=== PATIENT | male | born 1955 | race Caucasian/White ===

== ENCOUNTER 2019-08-25 06:22 | Observation (INO) | payer OTHER ==
[~2019-08-25] VITALS: Ht 180.3 cm; Wt 105.3 kg
[~2019-08-25 06:22] MED LIST: ANTARA130 MG; ASPIRIN325; BYSTOLIC 5 MG5 M1; FISH OIL 1,0001 EAC8; GLUCOPHAGE500 MG; HYDROCHLOROTH12.5 MG; LIPITOR80 MG; ZETIA10 MG
[2019-08-25 06:50] VITALS: BP 188/82
[2019-08-25] MEDS ORDERED: CRESTOR20 MG PO (06:59)
[2019-08-25 07:12] LABS: HEMATOCRIT 46.2 % (42.0-52.0); HEMOGLOBIN 15.1 gm/dL (14.0-18.0); MCH 29.7 pg (26.0-34.0); MCHC 32.7 g/dL (28.0-37.0); MCV 90.8 fL (80.0-100.0); RBC 5.09 mil/uL (4.50-6.00); RDW 13.2 % (10.5-14.5); WBC 7.9 thou/uL (4.0-11.0)
[2019-08-25 07:22] LABS: CALCIUM 9.2 mg/dL (8.5-10.1); CREATININE 0.9 mg/dL (0.7-1.3)
--- NOTE | 2019-08-25 11:06 | NUR ---
PT ORIENTED TO ROOM AND UNIT, BED LOW AND LOCKED, SIDE RAILS UPX3, CALL LIGHT IN REACH. WILL CONTINUE TO ASSESS.
[2019-08-25] MEDS ORDERED: METOPROLOL SUCC25 M1 PO (11:42)
[2019-08-25] MEDS ORDERED: EFFIENT10 MG PO (11:42)
[2019-08-25] MEDS ORDERED: BENICAR40 MG PO (11:42)
[2019-08-25 12:00] VITALS: BP 100/37
--- NOTE | 2019-08-25 12:53 | EKG ---
[address] [address] ELECTROCARDIOGRAM REPORT Name: DANIEL SANTIAGO Room #: 212-P [facility]..#: [id number] Admission: 08/25/19 Attend Phys: Dequan Matthews MD, Discharge: Date of : 53 Report #: [id number] THIS REPORT FOR: //name// [facility] Test Date: 2019-08-25 Test Time: 07:18:52 Pat Name: DANIEL SANTIAGO Department: Room: [facility] Gender: M Education Reviewer: Jose MARTINES : 1955 Requested By: Dequan Matthews Order Number: [id number] MD: Roosevelt Ortega Measurements Intervals [place] Rate: 64 P: 43 WI: 201 QRS: -17 QRSD: 102 T: 6 QT: 416 QTc: 430 Interpretive Statements Sinus rhythm Inferior infarct, old Compared to ECG 10/20/2002 18:33:50 First degree AV block no longer present Poor R-wave progression no longer present Myocardial infarct finding still present Electronically Signed On 08-25-2019 12:53:44 CDT by Roosevelt Ortega [email or web address] <ELECTRONICALLY SIGNED> By: Roosevelt Ortega MD 08/25/19 1253 7 7 Roosevelt Ortega MD /EPI
--- NOTE | 2019-08-25 12:58 | CATHLAB ---
[facility] [address] [place] [address] INVASIVE PROCEDURE REPORT Name: DANIEL SANTIAGO Room #: 212-P [facility] [place] .#: [id number] Admission: 08/25/19 Attend Phys: Dequan Matthews, Discharge: Date of : 53 Report #: [id number] THIS REPORT FOR: //name// APPROVED REPORT Study performed: 08/25/2019 07:43:24 Patient Details Patient Status: Out-Patient Room #: The patient is a 64 year-old male Event Personnel Dequan Matthews Buckle Strap Drum Operator, Ashli Shipman RN RN, Ruben Case RTR Mario Brown David Monitor, Audrey Arriola affiliate marketing coordinator Performed Left Heart Cath w/or w/o Coronaries [id number] [facility] Aortogram Abdominal Peripheral Angio 687566 [address] w/wo Plasty Single LAD 257342 Indication Chest pain Procedure Narrative The Right Groin^ was infiltrated with 1% Lidocaine subcutaneous anesthesia. A PINNACLE 6FR Sheath #[id number] sheath was inserted into the RFA^. Coronary angiography was performed using coronary diagnostic catheters. The right coronary system was accessed and visualized with a JR4 catheter. The left coronary system was accessed and visualized with a JL4 catheter. The left ventricle was accessed and visualized with a PIGTAIL catheter. Left ventricular/Aortic Valve gradient assessed via catheter pullback. Left ventriculogram was performed in 30 degree projection. An aortogram of the abdominal aorta was performed. Closure device was deployed with a 6 Fr MYNXGRIP 6/7F #[id number]. The patient tolerated the procedure well and there were no complications associated with the procedure. There was no hematoma. Intraoperative Conscious Sedation Sedation start time: 8.23 Case end Time: 9.20 Fentanyl 100 mcg Versed 2 mg Fluoro Time: 10.23 minutes [facility] [place] [address] INVASIVE PROCEDURE REPORT Name: JACKDANIEL Jitendra Room #: 212-P [facility] [place] ..#: [id number] Admission: 08/25/19 Attend Phys: Dequan Matthews, Discharge: Date of : 53 Report #: [id number] Dose: DAP 21273.00 cGycm2 1930 mGy Contrast Type and Amount: Omnipaque 210 ml Hemodynamics The aortic pressure is 173/67 mmHg with a mean of 94 mmHg. The left ventricular pressure is 166/11 mmHg with a mean of mmHg. The left ventricular end diastolic pressure is 14 mmHg. There was no gradient across the aortic valve upon pullback. Pullback from the left ventricle to the aorta revealed no gradient across the aortic valve. PCI Technique Lesion Percutaneous coronary intervention was performed on the mid left anterior descending artery segment. A LAUNCHER 6FR EBU 4.5 #[id number] Guide Catheter was used to engage the ostium. A Luge Wire .014 x 182CM #[id number] Interventional Guidewire was used to cross the lesion. BALLOON DILATION A Balloon catheter Sprinter OTW 2.75 x 20 #[id number] was inserted and inflated up to 12.00atm for 19seconds. Additional Inflation: 12.00atm for 13seconds. STENT DEPLOYMENT A drug-eluting stent RESOLUTE SARAH OTW 2.75 X 18 #[id number] was inserted and inflated up to 15.00atm for 34seconds. Additional Inflation: 15.00atm for 23seconds. Conclusion #1 successful PTCA stent of a mid LAD tandem 80-90% lesions placement of a 2.75 x 18 Sarah resolute stent postdilated 3.0 mm VITA grade 3 flow. Proximal LAD has 50% narrowing we will follow moderate heavy proximal calcification also noted. #2 left main large giving rise to LAD and circumflex #3 circumflex OM nondominant with mild disease there is brisk filling of the PDA TIMMY off of the dominant right that is occluded from the left system. #4 dominant right is proximally occluded was prior infarct vessel #5 normal left jugular size with inferior basilar hypokinesis EF 50% range #6 abdominal aortogram revealing mild tortuosity but no aneurysm renal arteries and iliac system appear widely patent Recreations and plan: Continue aggressive risk factor modification. Dual antiplatelet therapy times one year with proximal LAD stent. Will follow or proximal LAD lesion not intervened on. [facility] [address] [place] [address] INVASIVE PROCEDURE REPORT Name: JACKDANIEL A Room #: 212-P [facility] [place] M.R.#: [id number] Admission: 08/25/19 Attend Phys: Dequan Matthews, Discharge: Date of : 53 Report #: [id number] infarct previously noted. PDA TIMMY well collateralized. Transfer to U stable condition follow post stent protocol. <ELECTRONICALLY SIGNED> By: Dequan Matthews MD, FACC 08/25/19 1258 1258 Dequan Matthews MD, FACC /INF
--- NOTE | 2019-08-25 17:05 | NUR ---
PT TOLERATED LAYING FLAT FOR 3 HOURS WELL. PT UP TO BATHROOM ROOM. RIGHT GROIN REMAINS CDI. HOME BP MEDS SCHEDULED TO RESTART IN THE AM. WILL CONTINUE TO ASSESS.
--- NOTE | 2019-08-25 19:28 | NUR ---
GAVE AM BP MEDS TONIGHT SBP IS 175. PASSED THIS ONTO ANDREW RN AT BEDSIDE.
[2019-08-25 19:56] VITALS: BP 153/80
[2019-08-25 21:24] VITALS: BP 148/89
[2019-08-25 23:37] VITALS: BP 140/85
--- NOTE | 2019-08-26 03:53 | NUR ---
PT S/P CARDIAC CATH. ALERT AND ORIENTED. ELEVATED BP, CURRENTLY CONTROLLED. DENIES PAIN, GROIN SITE C/D/I. PT APPEAR STABLE . DENIES N/V/D. OTHER ASSESSMENTS DOCUMENTED. WILL CONTINUE TO FOLLOW POC.
[2019-08-26 04:30] VITALS: BP 153/79
[2019-08-26 05:58] LABS: HEMATOCRIT 44.2 % (42.0-52.0); HEMOGLOBIN 14.6 gm/dL (14.0-18.0); MCHC 33.1 g/dL (28.0-37.0); MCV 90.6 fL (80.0-100.0); RBC 4.88 mil/uL (4.50-6.00); RDW 12.8 % (10.5-14.5); WBC 7.8 thou/uL (4.0-11.0)
[2019-08-26 06:11] LABS: ALBUMIN 3.4 g/dL (3.4-5.0); CALCIUM 8.6 mg/dL (8.5-10.1); CREATININE 0.8 mg/dL (0.7-1.3); POTASSIUM 4.1 mmol/L (3.5-5.1); TOTAL BILIRUBIN 0.7 mg/dL (<0.1-1.0); TOTAL PROTEIN 6.5 g/dL (6.4-8.2); TROPONIN-I 0.2 ng/mL (<0.06)
[2019-08-26 08:00] VITALS: BP 141/81
[2019-08-26 10:08] VITALS: BP 141/81
--- NOTE | 2019-08-26 10:57 | NUR ---
ASSUMED CARE PT AT SHIFT CHANGE. ASSESSMENT CHARTED. MEDS GIVEN PER JAN. PT ALERT AND ORIENTED, VSS, DENIES PAIN. RT GROIN SITE CDI, NO HEMATOMA. O2 SATS WNL ON ROOM AIR. DC ORDERS ACKNOWLEDGED AND IMPLEMENTED, DC PAPERWORK DISCUSSED WITH PT, COMMUNICATES UNDERSTANDING. IV REMOVED TELE REMOVED, PT LEFT UNIT AT APPROX 1055.
--- NOTE | 2019-08-28 13:16 | EKG ---
[address] [place] [address] ELECTROCARDIOGRAM REPORT Name: DANIEL SANTIAGO Room #: 212-[facility]..#: [id number] Admission: 08/25/19 Attend Phys: Dequan Matthews MD, Discharge: 08/26/19 Date of : 53 Report #: [id number] THIS REPORT FOR: //name// [facility] Test Date: 2019-08-26 Test Time: 07:31:55 Pat Name: DANIEL SANTIAGO Department: Room: 212 Gender: M [employer] Miller: JS : 1955 Requested By: Georgina Clemons Order Number: [id number] MD: Ron Souza Measurements Intervals [place] Rate: 61 P: 3 WA: 200 QRS: -29 QRSD: 101 T: 7 QT: 413 QTc: 416 Interpretive Statements Sinus rhythm Multiple ventricular premature complexes Inferior infarct, old Compared to ECG 08/25/2019 07:18:52 Ventricular premature complex(es) now present Electronically Signed On 08-28-2019 13:16:27 CDT by Ron Souza [email or web address] <ELECTRONICALLY SIGNED> By: Ron Souza MD, [facility] 08/28/19 1316 0731 Ron Souza MD, [facility] /EPI
== END 2019-08-26 10:55 | disposition home or self-care (01) ==
LOC: CATH 06:22 → 2N 09:49
PROVIDERS: Nurse Practitioner Adult Health; ADMIT Internal Medicine Cardiovascular Disease
DX: I25.10 Atherosclerotic heart disease of native coronary artery without angina pectoris (principal); I10 Essential (primary) hypertension; E78.5 Hyperlipidemia, unspecified; E11.9 Type 2 diabetes mellitus without complications; I77.89 Other specified disorders of arteries and arterioles; Z79.84 Long term (current) use of oral hypoglycemic drugs; Z79.82 Long term (current) use of aspirin; Z79.899 Other long term (current) drug therapy

== ENCOUNTER → 2019-11-30 | Outpatient (CLI) | payer OTHER ==
[~2019-11-30] MED LIST changes: +BENICAR40 MG PO; +CRESTOR20 MG PO; +EFFIENT10 MG PO; +METOPROLOL SUCC25 M1 PO
== END | disposition home or self-care (01) ==
LOC: SJCVC 14:43
DX: I25.10 Atherosclerotic heart disease of native coronary artery without angina pectoris (principal); R94.31 Abnormal electrocardiogram [ECG] [EKG]; E78.00 Pure hypercholesterolemia, unspecified; I10 Essential (primary) hypertension; I65.23 Occlusion and stenosis of bilateral carotid arteries; E78.5 Hyperlipidemia, unspecified; Z82.49 Family history of ischemic heart disease and other diseases of the circulatory system; Z95.5 Presence of coronary angioplasty implant and graft; Z87.891 Personal history of nicotine dependence; Z79.84 Long term (current) use of oral hypoglycemic drugs; Z79.82 Long term (current) use of aspirin

== ENCOUNTER → 2020-01-11 | Outpatient (CLI) | payer OTHER | LOC: SJCVC 11:14 | DX: I25.10 Atherosclerotic heart disease of native coronary artery without angina pectoris (principal); E11.9 Type 2 diabetes mellitus without complications; E78.5 Hyperlipidemia, unspecified; I10 Essential (primary) hypertension ==

== ENCOUNTER → 2020-02-22 | Outpatient (CLI) | payer OTHER | LOC: SJCVC 12:38 | DX: R94.31 Abnormal electrocardiogram [ECG] [EKG] (principal); R00.1 Bradycardia, unspecified; I44.0 Atrioventricular block, first degree; I25.10 Atherosclerotic heart disease of native coronary artery without angina pectoris; E78.5 Hyperlipidemia, unspecified; I10 Essential (primary) hypertension; I65.23 Occlusion and stenosis of bilateral carotid arteries ==

== ENCOUNTER → 2020-08-23 | Outpatient (CLI) | payer OTHER | LOC: SJCVCIMAG 07:22 | PROVIDERS: ATTEND Internal Medicine Cardiovascular Disease | DX: I25.10 Atherosclerotic heart disease of native coronary artery without angina pectoris (principal); I10 Essential (primary) hypertension; E78.5 Hyperlipidemia, unspecified; E11.9 Type 2 diabetes mellitus without complications; Z95.5 Presence of coronary angioplasty implant and graft ==

== ENCOUNTER → 2021-06-03 | Outpatient (CLI) | payer OTHER | LOC: SJCVC 10:38 | PROVIDERS: ATTEND Internal Medicine Cardiovascular Disease | DX: R00.1 Bradycardia, unspecified (principal); I25.10 Atherosclerotic heart disease of native coronary artery without angina pectoris; I10 Essential (primary) hypertension; E78.00 Pure hypercholesterolemia, unspecified; E11.9 Type 2 diabetes mellitus without complications; I65.23 Occlusion and stenosis of bilateral carotid arteries; E78.5 Hyperlipidemia, unspecified; F12.90 Cannabis use, unspecified, uncomplicated; Z79.82 Long term (current) use of aspirin; Z79.899 Other long term (current) drug therapy; Z79.84 Long term (current) use of oral hypoglycemic drugs; Z87.891 Personal history of nicotine dependence; Z72.89 Other problems related to lifestyle ==

== ENCOUNTER 2021-09-10 09:37 | Day surgery (SDC) | payer OTHER ==
[~2021-09-10] VITALS: Ht 182.9 cm; Wt 102.1 kg
[~2021-09-10 09:37] MED LIST changes: +ASA81BEC PO; +BYSTOLIC10 MG PO; +CRESTOR40 MG PO; +EDARBYCLOR 40-1 EACH PO; -GLUCOPHAGE500 MG; +IBUPROFEN 800800 M1 PO; +METFORMIN HCL500 MG PO; +ZETIA10 MG PO
[2021-09-10 10:56] VITALS: BP 122/63
[2021-09-10 11:28] LABS: CALCIUM 9.1 mg/dL (8.5-10.1); POTASSIUM 3.7 mmol/L (3.5-5.1)
[2021-09-10] MEDS ORDERED: HYDROCODON-ACE1 EAC7 PO (13:51)
[2021-09-10 14:20] VITALS: BP 122/63
--- NOTE | 2021-09-11 11:20 | O ---
[facility] [place] [address] OPERATIVE REPORT Name: DANIEL SANTIAGO Room #: DEP [facility]..#: [id number] Admission: 09/10/21 Attend Phys: David Ventura MD Discharge: 09/10/21 Date of : 53 Report #: [id number] THIS REPORT FOR: cc: Pb Chua Steven F. DO Chu, Peter Y. MD ~ DATE OF SERVICE: 09/10/2021 PREOPERATIVE DIAGNOSIS: Ruptured cyst of scalp. POSTOPERATIVE DIAGNOSIS: Ruptured cyst of scalp. PROCEDURE PERFORMED: Excision of ruptured scalp cyst. ANESTHESIA: IV sedation, local 0.25% Marcaine. COMPLICATIONS: None. ESTIMATED BLOOD LOSS: 5 mL. DESCRIPTION OF PROCEDURE: The patient has had a history of a scalp cyst that recently got bigger and started to drain, was painful. The patient has a cyst that looked like it ruptured. There was necrotic skin over this. When he came in today, it looked like the sac is more visible than in the office. The patient was then under IV sedation. The hair was trimmed. The scalp was prepped with Betadine. Local anesthetic 0.25% Marcaine was placed. Timeout was performed. The skin over this was partially excised along with the underlying sac. The sac was removed and there was a hole in the sac, probably where it ruptured. I did look for any remaining sac cyst wall and then I did debride the lateral side on the left. This subQ area was then all cleaned out. I decided to go ahead and close this. The scalp was then brought together with 3-0 nylon suture in interrupted fashion. Antibiotic ointment was applied. The patient tolerated the procedure well. <ELECTRONICALLY SIGNED> By: David Ventura MD 09/11/21 1120 1006 1014 David Ventura MD /nt
--- NOTE | 2021-09-13 10:07 | PATH ---
[facility] [address] [place] [address] PATHOLOGY RPT PROCEDURE Name: HUNTER LEIVA Room #: DEP [facility]..#: [id number] Admission: 09/10/21 Date of : 53 Discharge: 09/10/21 Report #: [id number] Path Case #: [id number] [facility] Accession Number: [id number] . 01 Material submitted: . scalp - SCALP LESION . 01 Clinical history: . EXCISION LESION LESION SCALP . 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 . (IUV:mml; 09/12/2021) QL 09/12/2021 1127 Local . 02 Electronically signed: . Mary Rodriguez MD, Pathologist NPI- [id number] . 01 Gross description: . The specimen is received in formalin, labeled "Hunter Leiva, scalp lesion" and consists of a previously disrupted and fragmented into 3 pieces severino-clarke rubbery irregular tissue (2.6 x 2.3 x 1.5 cm), the largest of which displays a 1.5 x 1.2 cm defect to reveal a unilocular, soft hemorrhagic material containing, smooth-walled cyst (1.5 cm in greatest dimension). No excrescences or areas of thickening are identified. Legal Administrative Secretary sections are submitted in A1.(TYONEK; 09/11/2021) DKA/DKA 09/11/2021 1041 Local . 02 Pathologist provided ICD-10: D23.4 . 02 CPT . 503753 Specimen Comment: A courtesy copy of this report has been sent to [phone], [phone] Specimen Comment: [id number] Specimen Comment: Report sent to / DR [place] Specimen Comment: A duplicate report has been generated due to demographic updates. Performed at: [address], [place] [address] [address] [address] PATHOLOGY RPT PROCEDURE Name: HUNTER LEIVA Room #: [place] [facility] Arianna#: [id number] Admission: 09/10/21 Date of : 53 Discharge: 09/10/21 Report #: [id number] Path Case #: [id number] MD Reji Mcdaniels MD Phone: [phone] Performed at: [address] [id number] MD Mary Rodriguez MD Phone: [phone]
== END 2021-09-10 15:00 | disposition home or self-care (01) ==
LOC: OR 09:37 → TBA 09:46 → OR 11:23
PROVIDERS: ATTEND Surgery
DX: D23.4 Other benign neoplasm of skin of scalp and neck (principal); I10 Essential (primary) hypertension; E11.9 Type 2 diabetes mellitus without complications; E78.00 Pure hypercholesterolemia, unspecified; I25.2 Old myocardial infarction; I25.10 Atherosclerotic heart disease of native coronary artery without angina pectoris; Z98.890 Other specified postprocedural states; Z79.899 Other long term (current) drug therapy; Z90.49 Acquired absence of other specified parts of digestive tract; Z20.822 Contact with and (suspected) exposure to COVID-19; Z79.82 Long term (current) use of aspirin
CPT/HCPCS: 50010; 50101; 50386; 50403; 56527; 62110; 62850; 70005